=== PATIENT | female | born 1935 | race Caucasian/White ===

== ENCOUNTER 2019-01-04 19:49 | Emergency (ER) | payer OTHER, MEDICAID ==
[~2019-01-04] VITALS: Ht 162.6 cm; Wt 66.7 kg
[~2019-01-04 19:49] MED LIST: COR3 PO; LOT20 PO; MEV20 PO; PRI20 PO
[2019-01-04 19:53] VITALS: Ht 162.6 cm; Wt 66.7 kg
[2019-01-04 20:50] LABS: BASOPHIL % 0.8 % (0-2); PLATELET COUNT 228 x10^3mcL (130-400); RED CELL DISTRIBUTION WIDTH 14.1 % (11.5-14.5)
[2019-01-04 21:36] LABS: CARBON DIOXIDE 27.8 mmol/L (21-32); CHLORIDE SERUM 101 mmol/L (98-107); GLUCOSE SERUM 197 mg/dL (74-106); SODIUM SERUM 130 mmol/L (136-145)
[2019-01-04 21:37] LABS: ALBUMIN 4.1 g/dL (3.4-5.0); ALT/SGPT 29 U/L (14-59); AST/SGOT 16 U/L (15-37); BILIRUBIN TOTAL 1.12 mg/dL (0.20-1.00); CREATININE SERUM 0.9 mg/dL (0.6-1.0); TOTAL PROTEIN, SERUM 6.9 g/dL (6.4-8.2)
[2019-01-04 21:38] LABS: ALKALINE PHOSPHATASE 90 U/L (46-116)
[2019-01-04 21:39] LABS: MAGNESIUM 1.7 mg/dL (1.8-2.4)
[2019-01-04 23:15] VITALS: BP 117/59
== END 2019-01-04 23:15 | disposition home or self-care (01) ==
LOC: ED 19:49
PROVIDERS: Emergency Medicine
DX: R00.2 Palpitations (principal); E87.6 Hypokalemia; R73.9 Hyperglycemia, unspecified; I10 Essential (primary) hypertension; E86.0 Dehydration; Z45.018 Encounter for adjustment and management of other part of cardiac pacemaker
CPT/HCPCS: 36415; Q0092

== ENCOUNTER 2019-12-28 05:58 | Emergency (ER) | payer OTHER ==
[~2019-12-28] VITALS: Ht 162.6 cm; Wt 60.8 kg
[2019-12-28 06:04] VITALS: Ht 162.6 cm; Wt 60.8 kg
[2019-12-28 08:07] VITALS: BP 115/58
== END 2019-12-28 08:07 | disposition home or self-care (01) ==
LOC: ED 05:58
DX: R51 Headache (principal); R20.2 Paresthesia of skin; R20.0 Anesthesia of skin; I10 Essential (primary) hypertension; Z95.0 Presence of cardiac pacemaker

== ENCOUNTER 2020-04-07 12:27 | Emergency (ER) | payer OTHER ==
[~2020-04-07] VITALS: Ht 154.9 cm; Wt 60.3 kg
[2020-04-07 14:16] VITALS: BP 137/69
== END 2020-04-07 14:16 | disposition home or self-care (01) ==
LOC: ED 12:27
DX: I10 Essential (primary) hypertension (principal); Z02.79 Encounter for issue of other medical certificate; Z95.0 Presence of cardiac pacemaker; Z90.49 Acquired absence of other specified parts of digestive tract; Z90.710 Acquired absence of both cervix and uterus; Z86.73 Personal history of transient ischemic attack (TIA), and cerebral infarction without residual deficits

== ENCOUNTER 2020-08-05 08:49 | Emergency (ER) | payer OTHER ==
[~2020-08-05] VITALS: Ht 162.6 cm; Wt 64.4 kg
[2020-08-05 09:52] VITALS: Ht 162.6 cm; Wt 64.4 kg
[2020-08-05 12:08] VITALS: BP 170/61
== END 2020-08-05 12:08 | disposition home or self-care (01) ==
LOC: ED 08:49
DX: S80.02XA Contusion of left knee, initial encounter (principal); S59.902A Unspecified injury of left elbow, initial encounter; I10 Essential (primary) hypertension; Z86.73 Personal history of transient ischemic attack (TIA), and cerebral infarction without residual deficits; W18.39XA Other fall on same level, initial encounter; Y93.89 Activity, other specified; Y92.89 Other specified places as the place of occurrence of the external cause; Y99.8 Other external cause status

== ENCOUNTER 2020-08-22 11:15 | Emergency (ER) | payer OTHER ==
[~2020-08-22] VITALS: Ht 162.6 cm; Wt 64.9 kg
[2020-08-22 12:10] VITALS: BP 147/90
== END 2020-08-22 12:10 | disposition home or self-care (01) ==
LOC: ED 11:15
DX: M70.22 Olecranon bursitis, left elbow (principal); Y93.89 Activity, other specified; I10 Essential (primary) hypertension; E11.9 Type 2 diabetes mellitus without complications